=== PATIENT | female | born 1935 | race Caucasian/White ===

== ENCOUNTER → 2018-04-21 | Outpatient (REF) | payer MEDICARE, BC, OTHER ==
[~2018-04-21] MED LIST: BABY ASPIRIN81 MG PO; CALCIUM600 M2 OR; COZAAR50 MG OR; DARVOCET-N 100100 MG OR; FOSAMAX5 MG OR; FOSAMAX70 MG OR; HYDROCHLOROT12.5 MG OR; HYZAAR1 TA1 OR; LASIX20 MG OR; MULTIVITAMI1 OR; PAXIL20 MG OR; PREVACID30 M1 OR; PREVACID30 M2 OR; TENORMIN25 MG OR; XANAX0.5 MG OR; asa OR
[2018-04-21 11:28] LABS: HEMATOCRIT 32.7 % (37.0-47.0); HEMOGLOBIN 10.5 g/dl (12.0-16.0); IMMATURE GRANULOCYTES 0.4 % (0.0-5.0); MEAN CELL VOLUME 87.9 fL CALC (80.0-100.0); MEAN CORPUSCULAR HGB 28.2 pG CALC (26.0-32.0); MEAN CORPUSCULAR HGB CONC 32.1 g/L CALC (32.0-36.0); NEUT# 5.21 thou/uL (2.00-7.15); RED BLOOD COUNT 3.72 mill/uL (4.20-5.60); RED CELL DISTRI WIDTH 12.9 % (11.5-15.5)
[2018-04-21 12:10] LABS: ALBUMIN 4.1 g/dL (3.2-5.0); BILIRUBIN, TOTAL 0.6 mg/dL (0.0-1.4); CREATININE 1.1 mg/dL (0.5-1.0); POTASSIUM 4.6 mmol/l (3.5-5.1); TOTAL PROTEIN 7.2 g/dL (6.3-8.2)
[2018-04-21 12:32] LABS: TSH, 3RD GENERATION 2.55 uIU/mL (0.47 - 4.68)
== END | disposition home or self-care (01) ==
LOC: LAB 10:50
PROVIDERS: ATTEND Nurse Practitioner Adult Health
DX: E78.2 Mixed hyperlipidemia (principal); E11.9 Type 2 diabetes mellitus without complications; F33.1 Major depressive disorder, recurrent, moderate; I10 Essential (primary) hypertension

== ENCOUNTER 2019-02-26 | Emergency (ER) | payer MEDICARE, BC, OTHER ==
[~2019-02-26] MED LIST changes: +ALENDRONATE SOD70 MG PO; +CALCIUM600 M1 PO; -CALCIUM600 M2 OR; -FOSAMAX70 MG OR; -MULTIVITAMI1 OR; +MULTIVITAMI1 PO; +PAROXETINE20 M1 PO; -TENORMIN25 MG OR; +TENORMIN25 MG PO
[2019-02-26] MEDS ORDERED: OMEPRAZOLE DR20 MG PO (18:31)
[2019-02-26] MEDS ORDERED: COMBIGAN0.2 MG/0.5 OU (18:42)
[2019-02-26] MEDS ORDERED: XALATAN0.005 % OU (18:43)
[2019-02-26] MEDS ORDERED: DICLOFENAC SODIUM1 % TOP (18:49)
== END 2019-02-26 18:15 | disposition home or self-care (01) ==
DX: S00.83XA Contusion of other part of head, initial encounter (principal); S00.12XA Contusion of left eyelid and periocular area, initial encounter; S00.11XA Contusion of right eyelid and periocular area, initial encounter; I10 Essential (primary) hypertension; W01.0XXA Fall on same level from slipping, tripping and stumbling without subsequent striking against object, initial encounter; Y92.009 Unspecified place in unspecified non-institutional (private) residence as the place of occurrence of the external cause

== ENCOUNTER 2019-04-20 | Emergency (ER) | payer MEDICARE, BC, OTHER ==
[~2019-04-20] MED LIST changes: +COMBIGAN0.2 MG/0.5 OU; +DICLOFENAC SODIUM1 % TOP; +OMEPRAZOLE DR20 MG PO; +XALATAN0.005 % OU
[2019-04-20] MEDS ORDERED: LOSARTAN POTASS50 MG PO (11:09)
[2019-04-20] MEDS ORDERED: PREVAGEN10 MG PO (11:12)
[2019-04-20] MEDS ORDERED: ATORVASTATIN CA40 MG PO (11:13)
[2019-04-20] MEDS ORDERED: AMLODIPINE BES2.5 MG PO (11:13)
[2019-04-20] MEDS ORDERED: NAPROXEN500 MG PO (11:48)
== END 2019-04-20 11:55 | disposition home or self-care (01) ==
DX: S33.5XXA Sprain of ligaments of lumbar spine, initial encounter (principal); S00.81XA Abrasion of other part of head, initial encounter; I10 Essential (primary) hypertension; F03.90 Unspecified dementia, unspecified severity, without behavioral disturbance, psychotic disturbance, mood disturbance, and anxiety; W19.XXXA Unspecified fall, initial encounter; Z95.5 Presence of coronary angioplasty implant and graft

== ENCOUNTER 2020-02-04 13:37 | Emergency (ER) | payer MEDICARE, BC, OTHER ==
[~2020-02-04] VITALS: Ht 160 cm; Wt 70.0 kg
[~2020-02-04 13:37] MED LIST changes: +AMLODIPINE BES2.5 MG PO; +ATORVASTATIN CA40 MG PO; +LOSARTAN POTASS50 MG PO; +NAPROXEN500 MG PO; +PREVAGEN10 MG PO
[2020-02-04] MEDS ORDERED: PAROXETINE40 M1 PO (13:58)
[2020-02-04] MEDS ORDERED: VITAMIN B-121000 MCG PO (14:01)
[2020-02-04] MEDS ORDERED: DONEPEZIL10 MG PO (14:01)
[2020-02-04] MEDS ORDERED: FERROUS SULFAT325 MG PO (14:02)
[2020-02-04 16:14] VITALS: BP 157/67
[2020-02-04] MEDS ORDERED: HYDROCO/APAP1 TA9 PO (16:14)
[2020-02-04] MEDS ORDERED: ONDANSETRON4 MG PO (16:47)
== END 2020-02-04 17:04 | disposition home or self-care (01) ==
LOC: ED 13:37
DX: Z95.5 Presence of coronary angioplasty implant and graft (principal); S22.080A Wedge compression fracture of T11-T12 vertebra, initial encounter for closed fracture; I10 Essential (primary) hypertension; F03.90 Unspecified dementia, unspecified severity, without behavioral disturbance, psychotic disturbance, mood disturbance, and anxiety; W19.XXXA Unspecified fall, initial encounter

== ENCOUNTER 2020-06-08 | Emergency (ER) | payer MEDICARE, BC, OTHER ==
[~2020-06-08] MED LIST changes: +DONEPEZIL HCL10 M1 PO; +DONEPEZIL10 MG PO; +DOXYCYCL HYC100 MG PO; +FERROUS SULFAT325 MG PO; +HYDROCO/APAP1 TA9 PO; +ONDANSETRON4 MG PO; +PAROXETINE40 M1 PO; +PAROXETINE40 MG PO; +PERCOCET 5/325M1 TAB PO; +VITAMIN B-121000 MCG PO
[2020-06-08] MEDS ORDERED: BUSPIRONE5 MG PO (19:16)
[2020-06-08 20:18] LABS: HEMATOCRIT 38.3 % (37.0-47.0); HEMOGLOBIN 12.3 g/dl (12.0-16.0); IMMATURE GRANULOCYTES 0.1 % (0.0-5.0); MEAN CELL VOLUME 90.8 fL CALC (80.0-100.0); MEAN CORPUSCULAR HGB 29.1 pG CALC (26.0-32.0); MEAN CORPUSCULAR HGB CONC 32.1 g/dL CAL (32.0-36.0); NEUT# 3.81 thou/uL (2.00-7.15); RED BLOOD COUNT 4.22 mill/uL (4.20-5.60); RED CELL DISTRI WIDTH 12.4 % (11.5-15.5)
[2020-06-08 20:48] LABS: ALBUMIN 4.4 g/dL (3.2-5.0); BILIRUBIN, TOTAL 0.6 mg/dL (0.0-1.4); CREATININE 1.2 mg/dL (0.5-1.0); POTASSIUM 3.9 mmol/l (3.5-5.1); TOTAL PROTEIN 7.4 g/dL (6.3-8.2)
[2020-06-08 21:07] LABS: TSH, 3RD GENERATION 2.3 uIU/mL (0.47 - 4.68)
[2020-06-08 21:14] LABS: URINE BILIRUBIN - DIPSTICK NEGATIVE (NEGATIVE); URINE BLOOD DIPSTICK NEGATIVE (NEGATIVE); URINE COLOR YELLOW; URINE GLUCOSE - DIPSTICK NEGATIVE (NEGATIVE); URINE KETONE 15 mg/dL (NEGATIVE); URINE LEUK ESTERASE NEGATIVE (NEGATIVE); URINE PH 6.5 (4.5-8.0); URINE PROTEIN - DIPSTICK TRACE mg/dL (NEG-TRACE); URINE UROBILINOGEN - DIPSTICK 0.2 E.U./dL (0.2)
[2020-06-08 21:16] LABS: URINE NITRITE - DIPSTICK NEGATIVE (Negative)
== END 2020-06-08 22:25 | disposition home or self-care (01) ==
PROVIDERS: Family Medicine
DX: F03.90 Unspecified dementia, unspecified severity, without behavioral disturbance, psychotic disturbance, mood disturbance, and anxiety (principal); I10 Essential (primary) hypertension; Z95.5 Presence of coronary angioplasty implant and graft; Z20.822 Contact with and (suspected) exposure to COVID-19